=== PATIENT | female | born 1995 | race Caucasian/White ===

== ENCOUNTER 2024-10-12 15:26 | Emergency (ER) | payer OTHER ==
[2024-10-12] MEDS ORDERED: METHYLPREDNISOLONE 125 MG INJ ONE (17:06)
[2024-10-12] MEDS ORDERED: Magnesium Sulfate 2gm IVPB 2 G/50 ML BAG IV ONE (17:06)
[2024-10-12] MEDS ORDERED: ALBUTEROL 2.5 MG/3 ML NEB SOL ONE (17:06)
[2024-10-12] MEDS ORDERED: NA CHLORIDE 0.9% 1,000 ML ONE (17:06)
[2024-10-12 17:24] LABS: Absolute Eosinophils 0.3 K/uL (0-0.5); Absolute Lymphocytes (CBC) 0.9 K/uL (0.7-4.9); Absolute Monocytes 0.6 K/uL (0.1-1.3); Absolute Neutrophil 5.5 K/uL (1.8-8.0); Basophils % 0.4 % (0-1.3); Eosinophils % 4.2 % (0-4.4); Hematocrit 33.3 % (36.0-45.0); Hemoglobin 11.4 g/dL (12.0-15.0); Lymphocytes % 12.2 % (15.3-44.8); MCH 29.5 pg (27.0-35.0); MCHC 34.4 g/dL (32.0-36.0); MPV 9.5 fL (7.6-11.3); Monocytes % 8.6 % (3.3-12.3); Neutrophils % 74.6 % (41.7-73.7); Nucleated Red Blood Cells % 0.2 % (0-0); Platelets 210 thou/uL (152-406); RBC Red Blood Cell Count 3.87 M/uL (3.86-4.86); Red Cell Distribution Width 12.8 % (12.1-15.2)
[2024-10-12 19:26] LABS: SARS-CoV-2 Antigen Rapid Res Negative (Negative)
--- NOTE | 2024-10-12 20:14 | ER ---
Nurse's Notes [facility] Name: Mona Wilson Age: 29 yrs Sex: Female : 1995 Arrival Date: 10/12/2024 Time: 15:26 Bed 7 Private MD: Diagnosis: Unspecified asthma with (acute) exacerbation;29 weeks gestation of Presentation: 10/12 15:37 Chief complaint: Patient states: has been coughing and wheezing, coughing up phlegm for iw two days, is having to use her inhaler for past 2 days, still having difficulty breathing , is 29 weeks . Coronavirus screen: Client presents with at least one sign or symptom that may indicate coronavirus-19. Ebola Screen: No symptoms or risks identified at this time. Initial Sepsis Screen: Does the patient meet any 2 criteria? HR > 90 bpm. Does the patient have a suspected source of infection? No. Patient's initial sepsis screen is negative. Risk Assessment: Do you want to hurt yourself or someone else? Patient reports no desire to harm self or others. Onset of symptoms was October 10, 2024. 15:37 Method Of Arrival: Ambulatory iw 15:37 Acuity: CANDICE 3 iw Triage Assessment: 15:45 General: Appears in no apparent distress. Behavior is cooperative, appropriate for age, bp anxious. Pain: Denies pain. EENT: No deficits noted. Neuro: No deficits noted. Cardiovascular: Rhythm is sinus tachycardia. Respiratory: Reports shortness of breath Breath sounds with wheezes bilaterally. GI: No signs and/or symptoms were reported involving the gastrointestinal system. : No signs and/or symptoms were reported regarding the genitourinary system. Derm: No deficits noted. Musculoskeletal: No deficits noted. 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 - Infectious Disease History:: Denies. - Social history:: Smoking status: Patient denies any tobacco usage or history of. Screenin:45 [facility] ED Fall Risk Assessment (Adult) History of falling in the last 3 months, bp including since admission No falls in past 3 months (0 pts) Confusion or Disorientation No (0 pts) Intoxicated or Sedated No (0 pts) Impaired Gait No (0 pts) Mobility Assist Device Used No (0 pt) Altered Elimination No (0 pt) Score/Fall Risk Level 0 - 2 = Low Risk Oriented to surroundings. Abuse screen: Denies threats or abuse. Denies injuries from another. Nutritional screening: No deficits noted. Tuberculosis screening: No symptoms or risk factors identified. Assessment: 15:45 General: Appears in no apparent distress. comfortable, Behavior is cooperative, bp appropriate for age, anxious. 19:00 Reassessment: ASSUMED CARE OF PT. PT SITTING IN BED. NO DISTRESS NOTED. CONGESTION jj7 NOTED. COVID SWAM COLLECTED. PT TOLERATED WELL. VS STABLE. CALL COLEMAN IN REACH. General: Appears in no apparent distress. comfortable, Behavior is calm, cooperative, appropriate for age. Respiratory: Reports CONGESTION Airway is patent Trachea midline Respiratory effort is even, unlabored, Respiratory pattern is regular, symmetrical. Vital Signs: 15:37 BP 122 / 80; Pulse 124; Resp 20; Temp 97.4; Pulse Ox 95% on R/A; Weight 54.43 kg; iw Height 5 ft. 2 in. ; 18:08 BP 108 / 74; Pulse 106; Resp 20; Pulse Ox 100% ; bp 19:00 BP 102 / 81; Pulse 108; Resp 21; Pulse Ox 96% ; jj7 20:16 BP 99 / 65; Pulse 109; Resp 17; Temp 97.9; Pulse Ox 95% ; Pain 0/10; jj7 15:37 Body Mass Index 21.95 (54.43 kg, 157.48 cm) iw 20:16 Pain Scale: Adult jj7 Vitals: 20:16 Heart Tones 142. jj7 ED Course: 15:29 Patient arrived in ED. im 15:30 Almita Souza PA-C is PHCP. sb4 15:30 Chance Elizalde DO is Attending Physician. sb4 15:39 Triage completed. iw 15:45 Patient has correct armband on for positive identification. bp 16:53 Deepak Palumbo, RN is Primary Nurse. bp 17:02 XRAY CXR (1 view) In Process Unspecified. EDMS 17:18 Initial lab(s) drawn, by me, sent to lab. Inserted saline lock: 22 gauge in right bp forearm, using aseptic technique. Blood collected. Flushed with 10 mL NS. 18:08 Arm band placed on. bp 18:46 called and left a message with the answering service for Dr. Ariana Gonzalez at [phone]/ she or the mechanic general operational test will call us back. 18:55 connected the obgyn mechanic general operational test for Dr. Gonzalez with Almita HENSON for patient consultation. eb 20:16 No provider procedures requiring assistance completed. IV discontinued, intact, jj7 bleeding controlled, No redness/swelling at site. Pressure dressing applied. 20:26 Provided Education on: ANTIBIOTIC ADHERENCE . jj7 Administered Medications: 17:17 Drug: NS 0.9% IV 1000 ml IV at 1000 ml once; to be given as a bolus over 60 minutes bp Route: IV; Rate: 1000 ml; Site: right forearm; 19:00 Follow up: IV Status: Completed infusion j7 17:17 Drug: Magnesium Sulfate IVPB 2 grams IVPB once over 1 hrs Route: IVPB; Infused Over: 1 bp hrs; Site: right forearm; 19:00 Follow up: IV Status: Completed infusion jj7 17:17 Drug: MethylPrednisoLONE IVP 125 mg IVP once Route: IVP; Site: right forearm; bp 20:27 Follow up: Response: Marked relief of symptoms j7 17:18 Drug: Albuterol Inhalation 2.5 mg Inhalation once Route: Inhalation; bp Medication: 15:45 VIS not applicable for this client. bp Outcome: 20:13 Discharge ordered by MD. vargas 20:16 Discharged to home ambulatory, j7 20:16 Condition: improved 20:16 Discharge instructions given to patient, Instructed on discharge instructions, medication usage, Demonstrated understanding of instructions, medications, Prescriptions given X 2, 20:26 Patient left the ED. jj7 Signatures: Dispatcher [employer] EDMS Briana Davies RN RN iw Peltier, Brian RN Elen Galo Juwairiyah, RN RN jj7 Brown, Sophia, PA-C PAMary Ellen Zambrano Corrections: (The following items were deleted from the chart) 15:39 15:37 Chief complaint: Patient states: has been coughing and wheezing, coughing up iw phlegm for two days, is having to use her inhaler for past 2 days, still having difficulty breathing iw 15:39 15:37 BP 122 / 80; Pulse 124bpm; Resp 20bpm; Pulse Ox 94% RA; Temp 97.4F; iw iw
--- NOTE | 2024-10-12 20:14 | EDPHYS ---
Physician Documentation [facility] Name: Mona Wilson Age: 29 yrs Sex: Female : 1995 Arrival Date: 10/12/2024 Time: 15:26 Bed 7 Private MD: ED Physician Chance Elizalde HPI: 10/12 16:02 This 29 yrs old Female presents to ER via Ambulatory with complaints of Asthma sb4 Exacerbation, 29 weeks . 16:03 Cough, congestion, wheezing, shortness of breath x 2 days. Is approximately 29 weeks sb4 , has a history of asthma. States she takes Symbicort twice a day and albuterol every 4 as needed. States she has been using her inhalers quite frequently and still feels short of breath. States that there are several of her family members that are sick with similar symptoms. She denies any fever, chills, nausea, vomiting, diarrhea. States that her has been uncomplicated thus far. 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 - Infectious Disease History:: Denies. - Social history:: Smoking status: Patient denies any tobacco usage or history of. ROS: 16:03 Constitutional: Negative for fever, chills, and weight loss, sb4 16:03 Respiratory: Positive for cough, with green sputum, dyspnea on exertion, shortness of breath, wheezing, 16:03 All other systems are negative, Exam: 16:03 Constitutional: This is a well developed, well nourished patient who is awake, alert, sb4 and in no acute distress. Head/Face: Normocephalic, atraumatic. Eyes: Extra-ocular motions intact. Periorbital areas with no swelling, redness, or edema. ENT: Mucous membranes moist. Respiratory: No increased work of breathing, no retractions or nasal flaring. Abdomen/GI: Soft, non-tender, no distension. Skin: Warm, dry with normal turgor. Normal color with no rashes, no lesions, and no evidence of cellulitis. 16:03 Cardiovascular: Rate: tachycardic, Rhythm: regular, 16:03 Respiratory: Breath sounds: wheezing: is not appreciated, that is moderate, is scattered, 19:13 Respiratory: Breath sounds: wheezing: is improved sb4 Vital Signs: 15:37 BP 122 / 80; Pulse 124; Resp 20; Temp 97.4; Pulse Ox 95% on R/A; Weight 54.43 kg; iw Height 5 ft. 2 in. ; 18:08 BP 108 / 74; Pulse 106; Resp 20; Pulse Ox 100% ; bp 19:00 BP 102 / 81; Pulse 108; Resp 21; Pulse Ox 96% ; jj7 20:16 BP 99 / 65; Pulse 109; Resp 17; Temp 97.9; Pulse Ox 95% ; Pain 0/10; jj7 15:37 Body Mass Index 21.95 (54.43 kg, 157.48 cm) iw 20:16 Pain Scale: Adult jj7 MDM: 15:30 Medical Screening Exam initiated sb4 16:07 Differential diagnosis: acute asthma, reactive airway, URI, pneumonia, bronchitis. sb4 17:46 Data reviewed: vital signs, nurses notes, lab test result(s), radiologic studies, I sb4 have discussed the patient's presentation/case with the attending Emergency Department Physician;. 19:13 Antibiotic administration: The patient is discharged and will get outpatient sb4 antibiotics, Zithromax. 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 Hall, is in agreement with plan of p.o. antibiotics, steroids and follow-up next week. Counseling: I had a detailed discussion with the patient and/or guardian regarding the historical points, exam findings, and any diagnostic results supporting the discharge/admit diagnosis, lab results, radiology results, the need for outpatient follow up, an OB/Gyne specialist, to return to the emergency department if symptoms worsen or persist or if there are any questions or concerns that arise at home. 10/12 15:53 Order name: BMP; Complete Time: 17:43 sb4 10/12 15:53 Order name: CBC with Diff; Complete Time: 17:26 sb4 10/12 15:53 Order name: Magnesium; Complete Time: 17:43 sb4 10/12 15:53 Order name: NT PRO-BNP; Complete Time: 17:43 sb4 10/12 15:53 Order name: SARS RAPID; Complete Time: 19:26 sb4 10/12 15:53 Order name: XRAY CXR (1 view) sb4 10/12 15:53 Order name: IV Start; Complete Time: 17:18 sb4 10/12 19:04 Order name: FHT's; Complete Time: 20:16 sb4 Administered Medications: 17:17 Drug: NS 0.9% IV 1000 ml IV at 1000 ml once; to be given as a bolus over 60 minutes bp Route: IV; Rate: 1000 ml; Site: right forearm; 19:00 Follow up: IV Status: Completed infusion jj7 17:17 Drug: Magnesium Sulfate IVPB 2 grams IVPB once over 1 hrs Route: IVPB; Infused Over: 1 bp hrs; Site: right forearm; 19:00 Follow up: IV Status: Completed infusion jj7 17:17 Drug: MethylPrednisoLONE IVP 125 mg IVP once Route: IVP; Site: right forearm; bp 20:27 Follow up: Response: Marked relief of symptoms jj7 17:18 Drug: Albuterol Inhalation 2.5 mg Inhalation once Route: Inhalation; bp Disposition: 21:11 I was immediately available on-site in the Emergency Department for consultation in the ms3 care of the patient. Disposition Summary: 10/12/24 20:13 Discharge Ordered Notes: Location: Home sb4 Problem: new sb4 Symptoms: have improved sb4 Condition: Stable sb4 Diagnosis - Unspecified asthma with (acute) exacerbation sb4 - 29 weeks gestation of sb4 Followup: sb4 - With: Emergency Department - When: As needed - Reason: Trouble breathing, Worsening of condition Discharge Instructions: - Discharge Summary Sheet sb4 - Upper Respiratory Infection, Adult, [id number] sb4 - Asthma Action Plan, Adult sb4 Forms: - Antibiotic Education sb4 - Patient Portal Instructions sb4 - Leadership Thank You Letter sb4 Prescriptions: - Prednisone 20 mg Oral Tablet - take 1 tablet ORAL route once daily for 5 days; 5 tablet; Refills: 0, Product sb4 Selection Permitted - Zithromax Z-Cisco 250 mg Oral Tablet - take 1 tablet ORAL route as directed for 5 days Day 1 - take two (2) tablets sb4 one time. Day 2, 3, 4 , 5 take one (1) tablet once daily.; 6 tablet; Refills: 0, Product Selection Permitted Signatures: Dispatcher [employer] EDMS Briana Davies, MICHOACANO RN iw Deepak Palumbo RN RN Chance Vasquez DO DO ms3 Almita Souza PA-C PA-C sb4 Chiquita Kwan RN jj7 Corrections: (The following items were deleted from the chart) 15:54 15:53 BASIC METABOLIC PANEL+C.LAB.BRZ ordered. EDMS EDMS 15:54 15:53 CBC+H.LAB.BRZ ordered. EDMS EDMS 15:54 15:53 MAGNESIUM+C.LAB.BRZ ordered. EDMS EDMS 15:54 15:53 PROBNP+C.LAB.BRZ ordered. EDMS EDMS 15:54 15:54 Chest Single View+RAD.RAD.BRZ ordered. EDMS EDMS 15:54 15:54 SARS-COV-2 Antigen Rapid+I.LAB.BRZ ordered. EDMS EDMS
[2024-10-12 20:54] VITALS: BP 99/65; TEMP 97.9; O2SAT 95
--- NOTE | 2024-10-12 21:42 | RAD REPORT ---
EXAMINATION: ONE VIEW CHEST XR CLINICAL INDICATION: DYSPNEA TECHNIQUE: Frontal chest projection is submitted. Examination is limited by patient positioning and t echnique. COMPARISON: No prior exam. FINDINGS: The lungs are well inflated and clear. The heart is normal in size. No displaced fractures identified . Minimal levoscoliosis upper thoracic spine. IMPRESSION: No acute intrathoracic abnormalities. Electronically signed by: Shawn Santos MD 10/12/2024 05:13 PM CDT RP Due to temporary technical issues with the PACS/[employer] reporting system, reports are being cristino d by the in-house radiologist without review as a courtesy to ensure prompt reporting the interpreting radiologist is fully responsible for the content of the report Transcribed Date/Time: 10/12/2024 9:42 PM
== END 2024-10-12 20:26 | disposition home or self-care (01) ==
LOC: ER 15:26
DX: O99.513 Diseases of the respiratory system complicating pregnancy, third trimester (principal); J45.901 Unspecified asthma with (acute) exacerbation; Z3A.29 29 weeks gestation of pregnancy; Z11.52 Encounter for screening for COVID-19
CPT/HCPCS: 96365; 85025; 80048; 36415; 83735; 83880; 71045; 96375; 99285; 96366; 87426; J3475; J7613; J2919; J7030